=== PATIENT | male | born 1965 | race Two or more races ===

== ENCOUNTER 2016-12-08 17:10 | Emergency (ER) | payer SELFPAY ==
[~2016-12-08] VITALS: Ht 172.7 cm; Wt 77.1 kg
--- NOTE | 2016-12-08 17:07 | Emergency Room Report ---
History of Present Illness General Source: Patient, EMS Present Illness HPI Patient material male brought in by EMS after increased altered mental status. Patient prior history of alcohol abuse. Patient was brought in from home. Reportedly he was found are near some empty bottles of alcohol. Patient markedly limited by patient's mental status. Allergies: Coded Allergies: No Known Allergies (Unverified , 12/08/16) Patient History Past Medical History: see triage record Reviewed Nursing Documentation: PMH: Agreed, PSxH: Agreed Physical Exam Sp02 EP Interpretation: reviewed, normal General Appearance: normal inspection, well appearing, alert Head: atraumatic ENT: normal ENT inspection, hearing grossly normal, normal voice Neck: normal inspection, full range of motion, supple, no bony tend Respiratory: normal inspection, lungs clear, normal breath sounds, no respiratory distress, no retraction, no wheezing Cardiovascular #1: regular rate, rhythm, no edema Gastrointestinal: normal inspection, normal bowel sounds, non tender, soft, no guarding, no hernia Genitourinary: no CVA tenderness Musculoskeletal: normal inspection, back normal, normal range of motion Neurologic: normal inspection, speech normal Psychiatric: normal inspection, judgement/insight normal, mood/affect normal Skin: normal inspection, normal color, no rash Medical Decision Making Diagnostic Impression: Primary Impression: Acute alcoholic intoxication ER Course Patient presented for altered mental status. Differential diagnosis included but was not limited to ischemic stroke, subarachnoid hemorrhage, hypoglycemia, spinal cord injury, neurodegenerative disorder, urinary tract infection, hypoxemia.Because of complexity of patient's case laboratory testing and imaging studies were ordered.Patient was noted to have initially confused mental status. Patient had gradual improvement of neurologic status. At the time of discharge the patient was alert and ambulatory without assistance and had a good plan for self care. Patient declined placement. Patient was seen and examined by me in the emergency department. No life- threatening signs or symptoms were identified. Patient is stable for discharge from emergency Department. Patient was advised to stop drinking alcohol. And to followup with outpatient therapy for alcohol treatment. Labs Test 12/08/16 17:30 12/08/16 19:15 White Blood Count 7.7 K/UL (4.8-10.8) Red Blood Count 5.02 M/UL (4.70-6.10) Hemoglobin 15.6 G/DL (14.2-18.0) Hematocrit 49.5 % (42.0-52.0) Mean Corpuscular Volume 99 FL (80-99) Mean Corpuscular Hemoglobin 31.2 PG (27.0-31.0) Mean Corpuscular Hemoglobin Concent 31.6 G/DL (32.0-36.0) Red Cell Distribution Width 13.5 % (11.6-14.8) Platelet Count 163 K/UL (150-450) Mean Platelet Volume 5.8 FL (6.5-10.1) Neutrophils (%) (Auto) 79.8 % (45.0-75.0) Lymphocytes (%) (Auto) 18.0 % (20.0-45.0) Monocytes (%) (Auto) 1.7 % (1.0-10.0) Eosinophils (%) (Auto) 0.0 % (0.0-3.0) Basophils (%) (Auto) 0.6 % (0.0-2.0) Sodium Level 136 MMOL/L (136-145) Potassium Level 3.4 MMOL/L (3.5-5.1) Chloride Level 99 MMOL/L (98-107) Carbon Dioxide Level 19 MMOL/L (21-32) Anion Gap 18 (5-15) Blood Urea Nitrogen 16 mg/dL (7-18) Creatinine 1.1 MG/DL (0.55-1.30) Estimat Glomerular Filtration Rate > 60 mL/min (>60) Glucose Level 85 MG/DL (74-106) Calcium Level 9.0 MG/DL (8.5-10.1) Total Bilirubin 0.6 MG/DL (0.2-1.0) Aspartate Amino Transf (AST/SGOT) 102 U/L (15-37) Alanine Aminotransferase (ALT/SGPT) 62 U/L (12-78) Alkaline Phosphatase 159 U/L (46-116) Total Protein 8.5 G/DL (6.4-8.2) Albumin 4.0 G/DL (3.4-5.0) Globulin 4.5 g/dL Albumin/Globulin Ratio 0.9 (1.0-2.7) Salicylates Level 3 ug/mL (2.8-20) Serum Alcohol 281 mg/dL Urine Opiates Screen Negative (NEGATIVE) Urine Barbiturates Screen Negative (NEGATIVE) Phencyclidine (PCP) Screen Negative (NEGATIVE) Urine Amphetamines Screen Negative (NEGATIVE) Urine Benzodiazepines Screen Negative (NEGATIVE) Urine Cocaine Screen Negative (NEGATIVE) Urine Marijuana (THC) Screen Negative (NEGATIVE) Status: unchanged Disposition: ADMITTED INPATIENT Condition: Irma Tera Keita Dec 08, 2016 17:07
[2016-12-08] MEDS ORDERED: Thiamine HCl 100 MG in D5W 55 ML IVPB SCH (17:15)
[2016-12-08] MEDS ORDERED: Thiamine HCl 100mg/ml 2 ml Inj ONE (17:20)
[2016-12-08 17:54] LABS: BASOPHILS % (AUTO) 0.6 % (0.0-2.0); MEAN CORPUSCULAR HEMOGLOBIN 31.2 PG (27.0-31.0); MEAN CORPUSCULAR HGB CONC 31.6 G/DL (32.0-36.0); MEAN CORPUSCULAR VOLUME 99 FL (80-99); MEAN PLATELET VOLUME 5.8 FL (6.5-10.1); MONOCYTES % (AUTO) 1.7 % (1.0-10.0); NEUTROPHILS % (AUTO) 79.8 % (45.0-75.0); PLATELET COUNT 163 K/UL (150-450); RED BLOOD COUNT 5.02 M/UL (4.70-6.10); RED CELL DISTRIBUTION WIDTH 13.5 % (11.6-14.8); WHITE BLOOD COUNT 7.7 K/UL (4.8-10.8)
[2016-12-08 18:23] VITALS: BP 116/78
[2016-12-08 18:23] LABS: ALANINE AMINOTRANSFERASE 62 U/L (12-78); ALBUMIN/GLOBULIN RATIO 0.9 (1.0-2.7); ALCOHOL 281 mg/dL; ANION GAP 18 (5-15); ASPARTATE AMINO TRANSFERASE 102 U/L (15-37); CARBON DIOXIDE 19 MMOL/L (21-32); CHLORIDE 99 MMOL/L (98-107); CREATININE 1.1 MG/DL (0.55-1.30); GLOMERULAR FILTRATION RATE > 60 mL/min (>60); POTASSIUM 3.4 MMOL/L (3.5-5.1); SODIUM 136 MMOL/L (136-145); TOTAL PROTEIN 8.5 G/DL (6.4-8.2)
[2016-12-08 22:34] VITALS: BP 114/71
== END 2016-12-08 22:56 | disposition home or self-care (01) ==
LOC: EDBD 17:10 → EMR 17:42
DX: F10.129 Alcohol abuse with intoxication, unspecified (principal)
CPT/HCPCS: 36415; 80053; 80300; 85025; 96374; 99284; G0480; 80329

== ENCOUNTER 2016-12-12 13:59 | Emergency (ER) | payer SELFPAY ==
[~2016-12-12] VITALS: Ht 167.6 cm; Wt 74.8 kg
--- NOTE | 2016-12-12 14:14 | Emergency Room Report ---
History of Present Illness General Chief Complaint: Alcohol Intoxication Source: EMS Present Illness HPI Patient's a 51-year-old male presents today for alcohol intoxication. Patient reports drinking whiskey this morning. He denies any pain, nausea, vomiting. History is limited secondary to patient's condition. Allergies: Coded Allergies: No Known Allergies (Unverified , 12/08/16) Patient History Reviewed Nursing Documentation: PMH: Agreed, PSxH: Agreed Nursing Documentation-PMH Past Medical History: No History, Except For History Of Psychiatric Problem: Yes - etoh abuse Hx Seizures: Yes Review of Systems Psychiatric: Reports: other - alcohol intoxication Physical Exam Vital Signs Date Time Temp Pulse Resp B/P (MAP) Pulse Ox O2 Delivery O2 Flow Rate FiO2 12/12/16 13:32 97.5 88 18 125/68 98 Room Air General Appearance: no apparent distress, other - somnolent Respiratory: normal breath sounds Cardiovascular #1: normal inspection, regular rate, rhythm, no edema Gastrointestinal: normal inspection, normal bowel sounds Musculoskeletal: normal inspection, back normal Neurologic: other - somnolent, arrousable, responds to questions Skin: normal inspection, normal color, other - surgical scar on abdomen Medical Decision Making PA Attestation Supervising physician is Dr. Garcia Diagnostic Impression: Primary Impression: Acute alcoholic intoxication ER Course Patient is felt to be intoxicated and on initial exam. He admits to drinking whiskey prior to arrival. The patient given IV fluids in several hours to sleep. On reevaluation at 1807, patient states he is feeling well. He is ambulatory without difficulty. Patient is a O. x4. Patient is clinically sober and stable for discharge. Reevaluation Time: 18:08 Last Vital Signs Date Time Temp Pulse Resp B/P (MAP) Pulse Ox O2 Delivery O2 Flow Rate FiO2 12/12/16 13:32 97.5 88 18 125/68 98 Room Air Status: improved Disposition: HOME, SELF-CARE Condition: Stable Patient Instructions: Alcohol Abuse and Nutrition, Alcohol Intoxication, Easy- to-Read Zeynep Wei Dec 12, 2016 14:14
[2016-12-12] MEDS ORDERED: Tubing IV Cassette IV ONE (14:29)
[2016-12-12 15:00] VITALS: BP 121/81
[2016-12-12 17:38] VITALS: BP 115/73
[2016-12-12 18:19] VITALS: BP 115/73
== END 2016-12-12 18:23 | disposition home or self-care (01) ==
LOC: EDBD 13:59 → EMR 14:25
DX: F10.129 Alcohol abuse with intoxication, unspecified (principal)
CPT/HCPCS: 96360; 99284